=== PATIENT | male | born 1940 | race Caucasian/White ===

== ENCOUNTER 2016-11-04 12:39 | Outpatient (CLI) | payer MEDICARE, BC ==
[2016-09-26 09:24] VITALS: O2SAT 96
== END 2016-11-04 12:40 | disposition home or self-care (01) | DRG 561 ==
LOC: CONVCARE 12:39
PROVIDERS: ATTEND Orthopaedic Surgery
DX: Z47.1 Aftercare following joint replacement surgery (principal); R53.83 Other fatigue; Z96.651 Presence of right artificial knee joint; K08.89 Other specified disorders of teeth and supporting structures
CPT/HCPCS: 70220; 73560; 85018

== ENCOUNTER 2017-06-02 12:07 | Outpatient (CLI) | payer MEDICARE, BC ==
[2016-09-26 09:24] VITALS: O2SAT 96
== END 2017-06-02 12:08 | disposition home or self-care (01) | DRG 556 ==
LOC: CONVCARE 12:07
PROVIDERS: ATTEND Orthopaedic Surgery
DX: M25.511 Pain in right shoulder (principal); M50.322 Other cervical disc degeneration at C5-C6 level
CPT/HCPCS: 72040

== ENCOUNTER 2018-04-27 12:55 | Outpatient (CLI) | payer MEDICARE, BC ==
[2016-09-26 09:24] VITALS: O2SAT 96
== END 2018-04-27 12:56 | disposition home or self-care (01) | DRG 566 ==
LOC: CONVCARE 12:55
PROVIDERS: ATTEND Orthopaedic Surgery
DX: Z96.651 Presence of right artificial knee joint (principal); Z51.89 Encounter for other specified aftercare
CPT/HCPCS: 73560

== ENCOUNTER 2018-08-02 06:57 | Emergency (ER) | payer MEDICARE, BC ==
[2018-08-02] MEDS ORDERED: AMIODARONE 50 MG/ML SOL IVP ONE ×2 (07:04→07:07)
[2018-08-02] MEDS ORDERED: SODIUM CHLORIDE 0.9% FLUSH 10 ML SOL IV PRN (07:05)
[2018-08-02] MEDS ORDERED: NITROGLYCERIN 0.4 MG TAB SL PRN (07:05)
[2018-08-02 07:12] LABS: BASOPHILS % (AUTO) 2 % (0-3); EOSINOPHILS % (AUTO) 3 % (0-9); HEMATOCRIT 44 % (39-53); HEMOGLOBIN 14.5 gm/dl (13.5-17.7); LYMPHOCYTES % (AUTO) 38.5 % (10-50); MEAN CORPUSCULAR HEMOGLOBIN 30.4 pg (27.0-32.0); MEAN CORPUSCULAR VOLUME 92 fL (80-100); MONOCYTES % (AUTO) 10.9 % (0-12); NEUTROPHILS % (AUTO) 45.8 % (37-80)
[2018-08-02] MEDS ORDERED: AMIODARONE 50 MG/ML SOL ONE (07:14)
[2018-08-02 07:17] VITALS: TEMP 97.4
[2018-08-02 07:24] LABS: BLOOD UREA NITROGEN 17 mg/dl (7-18); CALCIUM 8.8 mg/dl (8.5-10.1); CARBON DIOXIDE 22.7 mEq/L (21-32); CHLORIDE 104 mMol/L (98-107); CREATINE KINASE 136 U/L (39-308); CREATININE 1.03 mg/dl (0.80-1.30); GLUCOSE 219 mg/dl (74-106); POTASSIUM 3.7 mMol/L (3.5-5.1); SODIUM 140 mMol/L (136-145); TROP I < 0.017 ng/ml (0.000-0.056)
[2018-08-02 07:29] LABS: ABG PH 7.32 (7.35-7.45)
[2018-08-02] MEDS ORDERED: FUROSEMIDE 20mg SOL IV ONE (07:35)
[2018-08-02] MEDS ORDERED: FUROSEMIDE 20mg SOL ONE (07:36)
[2018-08-02] MEDS ORDERED: ASPIRIN 325 MG TAB PO SCH (07:45)
[2018-08-02 08:06] LABS: ALBUMIN 3.9 gm/dl (3.4-5.0); BILIRUBIN,DIRECT 0.2 mg/dl (0.0-0.2); BILIRUBIN,TOTAL 0.4 mg/dl (0.2-1.0); TOTAL PROTEIN 7.7 gm/dl (6.4-8.2)
[2018-08-02] MEDS ORDERED: NITROGLYCERIN 5 MG/ML 50 MG in DEXTROSE 250 ML 250 ML IV PRN (08:06)
[2018-08-02 08:24] LABS: APPEARANCE,URINE Clear; BILIRUBIN,URINE NEGATIVE (NEGATIVE); COLOR,URINE Yellow; GLUCOSE, URINE (UA) NEGATIVE (NEGATIVE); KETONES,URINE NEGATIVE (NEGATIVE); LEUKOCYTE ESTERASE ,URINE NEGATIVE (NEGATIVE); NITRATE,URINE NEGATIVE (NEGATIVE); OCCULT BLOOD,URINE TRACE INTACT (NEG-TRACE); PH,URINE 5.5; UROBILINOGEN,URINE 0.2 (0.2-1.0 EU)
[2018-08-02 08:27] LABS: BACTERIA RARE (< 1+); CRYSTALS NEGATIVE (0-3 AVE/HPF); EPITHELIAL CELLS 0-2 (SQUAMOUS); RBC,URINE 0-2 (0-3AV/HPF); WBC,URINE 0-2 (0-5AV/HPF)
[2018-08-02 12:06] VITALS: BP 165/85; PULSE 92; RESP 16; O2SAT 96
== END 2018-08-02 09:16 | disposition short-term general hospital (02) | DRG 293 ==
LOC: ED 06:57
DX: I50.9 Heart failure, unspecified (principal); R09.02 Hypoxemia; I25.10 Atherosclerotic heart disease of native coronary artery without angina pectoris
CPT/HCPCS: 36600; 71045; 80048; 80076; 81001; 82550; 82803; 83880; 84484; 85025; 85378; 93005; 96365; 96374; 96375; 99070; 99291; J0282; J1940; J3490

== ENCOUNTER 2019-02-17 13:34 | Emergency (ER) | payer MEDICARE, BC ==
[2019-02-17 14:27] VITALS: TEMP 97
[2019-02-17 15:06] VITALS: BP 145/67; PULSE 72; RESP 15; O2SAT 98
== END 2019-02-17 15:57 | disposition home or self-care (01) | DRG 149 ==
LOC: ED 13:34
DX: R42 Dizziness and giddiness (principal); R20.2 Paresthesia of skin; E11.9 Type 2 diabetes mellitus without complications
CPT/HCPCS: 93005; 99283; 99284

== ENCOUNTER 2019-03-18 05:54 | Emergency (ER) | payer MEDICARE, BC ==
[2019-03-18] MEDS ORDERED: SODIUM CHLORIDE 0.9% FLUSH 10 ML SOL IV PRN (06:02)
[2019-03-18] MEDS ORDERED: ASPIRIN 81 MG CHEWABLE CTB PO ONE (06:07)
[2019-03-18 06:15] VITALS: TEMP 97.2
[2019-03-18] MEDS ORDERED: FUROSEMIDE 40 MG SOL ONE (06:21)
[2019-03-18 06:22] LABS: BASOPHILS % (AUTO) 1 % (0-3); EOSINOPHILS % (AUTO) 2 % (0-9); HEMATOCRIT 40 % (39-53); HEMOGLOBIN 13.6 gm/dl (13.5-17.7); LYMPHOCYTES % (AUTO) 14.9 % (10-50); MEAN CORPUSCULAR HEMOGLOBIN 30.3 pg (27.0-32.0); MEAN CORPUSCULAR VOLUME 89 fL (80-100); MONOCYTES % (AUTO) 7.8 % (0-12); NEUTROPHILS % (AUTO) 74.9 % (37-80)
[2019-03-18] MEDS ORDERED: FUROSEMIDE 40 MG SOL IV ONE (06:24)
[2019-03-18] MEDS ORDERED: NITROGLYCERIN 0.4 MG TAB SL ONE ×3 (06:34→11:09)
[2019-03-18] MEDS: NITROGLYCERIN 0.4 MG TAB SL PRN ×3 (06:35→11:10)
[2019-03-18 06:38] LABS: INR 1.08 (0.86-1.12)
[2019-03-18 06:42] LABS: ALBUMIN 3.9 gm/dl (3.4-5.0); ALKALINE PHOSPHATASE 89 IU/L (46-116); ALT 23 IU/L (14-63); AST 20 IU/L (15-37); BILIRUBIN,TOTAL 0.7 mg/dl (0.2-1.0); BLOOD UREA NITROGEN 22 mg/dl (7-18); CARBON DIOXIDE 25.7 mEq/L (21-32); CHLORIDE 102 mMol/L (98-107); GLUCOSE 222 mg/dl (74-106); POTASSIUM 3.9 mMol/L (3.5-5.1); SODIUM 138 mMol/L (136-145); TOTAL PROTEIN 7.6 gm/dl (6.4-8.2); TROP I < 0.017 ng/ml (0.000-0.056)
[2019-03-18 07:09] LABS: INFLUENZA A NEGATIVE (NEGATIVE); INFLUENZA B NEGATIVE (NEGATIVE)
[2019-03-18 10:57] VITALS: RESP 15
[2019-03-18] MEDS ORDERED: CLONIDINE 0.1 MG TAB ONE (11:20)
[2019-03-18] MEDS ORDERED: CLONIDINE 0.1 MG TAB PO ONE (11:20)
[2019-03-18 11:39] VITALS: PULSE 105; O2SAT 94
[2019-03-18 11:40] VITALS: BP 182/123
== END 2019-03-18 11:23 | disposition short-term general hospital (02) | DRG 303 ==
LOC: ED 05:54
DX: I25.10 Atherosclerotic heart disease of native coronary artery without angina pectoris (principal); I50.9 Heart failure, unspecified; R07.9 Chest pain, unspecified; E11.9 Type 2 diabetes mellitus without complications; R06.02 Shortness of breath
CPT/HCPCS: 36415; 71045; 80053; 82962; 83880; 84484; 85025; 85610; 85730; 87804; 93005; 96374; 99285; 99291; J1940; A9270-GY

== ENCOUNTER 2019-03-21 12:07 | Emergency (ER) | payer MEDICARE, BC ==
[2019-03-21 12:20] VITALS: RESP 20; TEMP 96.2
[2019-03-21] MEDS ORDERED: SODIUM CHLORIDE 0.9% 1000ML 500 ML IV ONE (12:42)
[2019-03-21] MEDS ORDERED: SODIUM CHLORIDE 0.9% FLUSH 10 ML SOL IV PRN (14:39)
[2019-03-21 15:14] VITALS: BP 104/65; PULSE 65; O2SAT 98
== END 2019-03-21 15:05 | disposition home or self-care (01) | DRG 312 ==
LOC: ED 12:07
DX: R55 Syncope and collapse (principal); I95.1 Orthostatic hypotension; R42 Dizziness and giddiness
CPT/HCPCS: 96365; 96366; 99282; 99283